=== PATIENT | female | born 1985 | race Two or more races ===

== ENCOUNTER 2016-07-27 23:27 | Emergency (ER) | payer MEDICAID ==
[~2016-07-27] VITALS: Ht 167.6 cm; Wt 68.0 kg
[~2016-07-27 23:27] MED LIST: CLON1TAB; OXYC5CAP17; PHEN60IN
[2016-07-27 23:58] VITALS: BP 108/62
== END 2016-07-28 02:06 | disposition left against medical advice (07) ==
LOC: ER 23:27
DX: R07.9 Chest pain, unspecified (principal); Z53.21 Procedure and treatment not carried out due to patient leaving prior to being seen by health care provider
CPT/HCPCS: 93005